=== PATIENT | male | born 1940 | race Caucasian/White ===

== ENCOUNTER 2017-04-26 06:20 | Day surgery (SDC) | payer MEDICARE ==
[~2017-04-26 06:20] MED LIST: BYDUREON PEN2 MG SQ; CARDURA4 MG PO; CIPRO 500MG TA500 MG PO; DAZIDOX10 MG PO; FENOFIBRATE160 MG PO; FLEXERIL10 MG PO; FLOMAX 0.40.4 MG/CAP PO; GLUCOPHAGE1000 MG PO; GLUCOPHAGE500 MG/TAB PO; GLUCOTROL XL2.5 MG PO; GLUCOTROL10 MG PO; JANUVIA 100MG100 MG PO; LIPITOR 40MG TA40 MG PO; LIPITOR80 MG PO; LOFIBRA160 MG PO; LYRICA 50MG CAP50 MG PO; METFORMIN1000 MG PO; MOBIC15 MG PO; NABUMETONE750 MG PO; NORCO 325 MG-101 TAB PO; OMEPRAZOLE40 MG PO; PERCOCET 325 MG1 TA2 PO; PRIL40 PO; PROSCAR 5MG5 MG PO; ROBAXIN 75750 MG/TAB PO; VOLTAREN 75 DR75 MG PO; VOLTAREN GEL 1%1 TU TP
[2017-04-26 07:34] LABS: CALCIUM 9.7 mg/dL (8.4-10.2); CREATININE, serum 0.78 mg/dL (0.66-1.25); POTASSIUM 4.3 mmol/L (3.4-5.0)
[2017-04-26] MEDS ORDERED: GLUCOPHAGE1000 MG PO (07:34)
[2017-04-26] MEDS ORDERED: PRIL40 PO (07:34)
[2017-04-26] MEDS ORDERED: TRIGLIDE160 M1 PO (07:35)
[2017-04-26] MEDS ORDERED: CARDURA4 MG PO (07:36)
[2017-04-26] MEDS ORDERED: LIPITOR 80MG80 MG PO (07:38)
[2017-04-26] MEDS ORDERED: VOLTAREN 75 DR75 MG PO (07:39)
[2017-04-26] MEDS ORDERED: CALCIUM CARBON650 M2 PO (07:40)
[2017-04-26] MEDS ORDERED: VITAMIN D3400 I1 PO (07:41)
== END 2017-04-26 08:15 | disposition home or self-care (01) ==
LOC: SDCO 06:20
PROVIDERS: Urology
DX: N32.0 Bladder-neck obstruction (principal); N40.1 Benign prostatic hyperplasia with lower urinary tract symptoms; R35.0 Frequency of micturition; R35.1 Nocturia; C61 Malignant neoplasm of prostate; I10 Essential (primary) hypertension; E11.9 Type 2 diabetes mellitus without complications; K21.9 Gastro-esophageal reflux disease without esophagitis; Z53.8 Procedure and treatment not carried out for other reasons; Z90.49 Acquired absence of other specified parts of digestive tract; Z79.84 Long term (current) use of oral hypoglycemic drugs; Z88.0 Allergy status to penicillin; Z83.3 Family history of diabetes mellitus; Z82.49 Family history of ischemic heart disease and other diseases of the circulatory system; Z84.1 Family history of disorders of kidney and ureter
CPT/HCPCS: J2250; J2405; J2704; J3010; J7120

== ENCOUNTER 2019-10-04 07:41 | Inpatient (IN) | payer MEDICARE ==
[~2019-10-04] VITALS: Ht 172.7 cm; Wt 57.3 kg
[~2019-10-04 07:41] MED LIST changes: +CALCIUM CARBON650 M2 PO; +LIPITOR 80MG80 MG PO; +TRIGLIDE160 M1 PO; +VITAMIN D3400 I1 PO
[2019-10-04 08:35] LABS: BASO % 0.5 % (0.0-2.0); EOS % 0.5 % (0-4.0); GRAN # 4.5 (1.4-6.5); GRAN % 68.4 % (42.2-75.2); HEMATOCRIT 41.5 % (42.0-52.0); HEMOGLOBIN 13.7 g/dl (13.5-18.0); LYMPH # 1.4 (1.2-3.4); LYMPH % 21.3 % (20.0-51.0); MEAN CELL VOLUME 89 fl (80.0-100.0); MEAN CORPUSCULAR HEMOGLOBIN 29 pg (27.0-31.0); MEAN CORPUSCULAR HGB CONC 33 g/dl (33.0-37.0); MEAN PLATELET VOLUME 9.6 fl (7.4-10.4); MONO # 0.6 (0.1-0.6); MONO % 8.7 % (1.7-9.3); PLATELET COUNT 363 K/mm3 (130-400); RED BLOOD COUNT 4.66 M/mm3 (4.20-5.60); REDCELL DISTRIBUTION WIDTH-CV 13.7 % (11.5-14.5)
[2019-10-04 08:54] LABS: ALANINE AMINOTRANSFERASE 11 U/L (4-49); ALBUMIN 4.2 gm/dL (3.5-5.0); ALKALINE PHOSPHATASE 251 U/L (50-136); ANION GAP 10 mmol/L (7-16); AST,SGOT 20 U/L (15-37); BILIRUBIN,TOTAL 0.8 mg/dL (0.0-1.0); BLOOD UREA NITROGEN 12 mg/dL (9-20); CALCIUM 9.5 mg/dL (8.4-10.2); CARBON DIOXIDE 31 mmol/L (22-30); CHLORIDE 91 mmol/L (98-107); CREATININE, serum 0.54 (0.66-1.25); LIPASE 60 U/L (23-300); POTASSIUM 4.4 mmol/L (3.4-5.0); SODIUM 132 mmol/L (137-145); TOTAL PROTEIN 8.5 gm/dL (6.4-8.2)
[2019-10-04 09:00] LABS: GLUCOSE 427 mg/dL (74-106)
[2019-10-04 09:12] LABS: COLLECTION METHOD CATHETER
[2019-10-04 09:13] LABS: PROTHROMBIN TIME 11.2 SECONDS (9.7-12.8)
[2019-10-04 09:18] LABS: PH 6 (5-8); SQUAMOUS EPITHELIAL None Seen /hpf; URINE APPEARANCE Clear; URINE BILIRUBIN Negative (NEGATIVE); URINE BLOOD Negative (NEGATIVE); URINE COLOR Yellow; URINE GLUCOSE 3+ (NEGATIVE); URINE KETONE 1+ (NEGATIVE); URINE LEUKOCYTE ESTERASE 1+ (NEGATIVE); URINE NITRATE Negative (NEGATIVE); URINE PROTEIN(semi-quant) 2+ (NEGATIVE); URINE UROBILINOGEN Negative (NEGATIVE); URINE WBC 20-50 /hpf
[2019-10-04 09:20] LABS: TROPONIN-I < 0.012 ng/mL (0.000-0.035)
[2019-10-04 09:31] LABS: URINE BACTERIA Rare /hpf
--- NOTE | 2019-10-04 13:31 | NUR ---
PT ARRIVED TO UNIT FROM ED @1320 ACCOMPANIED BY NURSE. REPORTS PAIN 6/10 TO ACROSS MID ABD AND LT HIP TO LOWER BACK THROBBING. MODERATE [place]. SHOES, WHITE SHIRT AND PLAN PANTS PLACED IN CLOSET. WILL COME BY AFTER WORK PER ED NURSE.
[2019-10-04 13:40] VITALS: BP 137/88; PULSE 90; TEMP 98.1
[2019-10-04 16:25] VITALS: BP 149/82; PULSE 91; TEMP 98.4
[2019-10-04 19:40] VITALS: BP 141/78; PULSE 96; TEMP 97.5
--- NOTE | 2019-10-04 20:45 | NUR ---
Patient assessed at this time. Alert and oriented. Denies pain and discomfort at this time. Stated that PRN [place] had helped. Encouraged to call if needing any further pain medication, and voiced understanding. Peripheral IV to left AC, NS running at 100 ml/hr per orders. Site is without redness, warmth, swelling, and pain. Denies having SOB and dyspnea. LS diminished throughout. HRR. Telemetry in place: sinus rhythm. Capillary refill less than 3 seconds. Non-tenting skin turgor. BSAx4. Abdomen soft and non-tender. No edema. Multiple scabs in various stages of healing to BUE and BLE. Voices no questions, needs, or concerns at this time. Resting in bed with call light within reach.
[2019-10-04 23:29] VITALS: BP 120/64; PULSE 87; TEMP 97.9
--- NOTE | 2019-10-05 01:20 | NUR ---
Patient given PRN [place] for pain at this time.
[2019-10-05 03:55] VITALS: BP 128/64; PULSE 95; TEMP 97.5
--- NOTE | 2019-10-05 05:18 | NUR ---
Patient has been resting in bed with call light within reach. Has not been calling for assistance. Bed alarm is on, and notifies staff when patient attempting to get up. Has been using bedside urinal while standing with staff assistance for urination. Received PRN [place] once so far this shift for pain to back, and medication was effective. Patient stated that IV to left AC was irritating hime due to beeping when bending arm. New IV started to right forearm as requsted. IV site to left AC taken out. NS continues to run at 100 ml/hr per orders. Patient voices no further questions, needs, or concerns at this time.
--- NOTE | 2019-10-05 07:00 | NUR ---
Bedside shift report received from RICARDO Alston. PT in bed resting, denies needs, will continue to monitor.
[2019-10-05 07:13] VITALS: BP 145/68; PULSE 86; TEMP 97.7
[2019-10-05 07:20] LABS: BASO % 0.4 % (0.0-2.0); EOS % 0.8 % (0-4.0); GRAN # 3.6 (1.4-6.5); GRAN % 71.8 % (42.2-75.2); LYMPH # 0.9 (1.2-3.4); LYMPH % 18.4 % (20.0-51.0); MEAN CELL VOLUME 90 fl (80.0-100.0); MEAN CORPUSCULAR HGB CONC 33 g/dl (33.0-37.0); MEAN PLATELET VOLUME 9.5 fl (7.4-10.4); MONO # 0.4 (0.1-0.6); PLATELET COUNT 282 K/mm3 (130-400); RED BLOOD COUNT 3.92 M/mm3 (4.20-5.60); REDCELL DISTRIBUTION WIDTH-CV 13.9 % (11.5-14.5)
[2019-10-05 07:29] LABS: HEMATOCRIT 35.2 % (42.0-52.0); MEAN CORPUSCULAR HEMOGLOBIN 30 pg (27.0-31.0)
[2019-10-05 07:31] LABS: HEMOGLOBIN 11.6 g/dl (13.5-18.0)
[2019-10-05 07:39] LABS: ALBUMIN 3.3 gm/dL (3.5-5.0); BILIRUBIN,TOTAL 0.5 mg/dL (0.0-1.0); CALCIUM 8.5 mg/dL (8.4-10.2); CHOLESTEROL RISK RATIO 6.6; CREATININE, serum 0.64 (0.66-1.25); MAGNESIUM 1.7 mg/dL (1.6-2.3); PHOSPHOROUS 3.8 mg/dL (2.5-4.5); POTASSIUM 3.9 mmol/L (3.4-5.0); TOTAL PROTEIN 6.7 gm/dL (6.4-8.2)
--- NOTE | 2019-10-05 07:57 | NUR ---
Pt resting in bed, doing well, denies pain, assessment charted. Gave washcloth to do own am care, states he feels better than when he came in. Fall risk in place, will continue to monitor. IVF to RFA.
[2019-10-05 11:09] VITALS: BP 127/69; PULSE 91; TEMP 98
[2019-10-05 16:11] VITALS: BP 135/78; PULSE 94; TEMP 98.7
--- NOTE | 2019-10-05 16:51 | NUR ---
Brim Rounder met with patient to discuss discharge planning. Patient lives in [place] with his, ([id number]#[phone]) and sees Dr. Queen for primary care. Patient obtains medications from [facility] with no difficulties. Patient uses a walker and is normally independent with ADLS, although reports he has to be very careful. Patient does not have Advance Directives in EMR. Patient denies every having Home Health Services and plans on returning home at this time. SW will continue to monitor for discharge needs.
--- NOTE | 2019-10-05 18:12 | NUR ---
Pt has had a lot of pain today, PRN pain meds given IV and PO often. Suppository given and patient has had two liquid stools that are mostly water and mucous, no formed stool to this point. Pt resting in bed, Otto visited this evening, orders received. Will give bedside shift report to nightshift nurse who will resume care.
[2019-10-05 19:39] VITALS: BP 111/74; PULSE 88; TEMP 97.8
--- NOTE | 2019-10-05 20:50 | NUR ---
Patient assessed at this time. Alert and oriented with intermittent confusion. Does not make needs known. High fall risk precautions in place. Does say he has pain to back. Given PRN Morphine per orders. Peripheral IV to right forearm. Fluids running per orders. Site is without redness, warmth, swelling, and pain. Denies having SOB and dyspnea. LS CTA in upper lobes, diminished in lower. Respirations even and unlabored. HRR. Telemetry in place. Capillary refill less than 3 seconds. Non-tenting skin turgor. BSAx4. Abdomen soft and non-tender. No edema. Voices no questions, needs, or concerns at this time. Resting in bed with call light within reach.
[2019-10-05 23:52] VITALS: BP 136/80; PULSE 80; TEMP 98.1
[2019-10-06 04:22] VITALS: BP 164/82; PULSE 90; TEMP 97.7
--- NOTE | 2019-10-06 05:43 | NUR ---
Patient has been resting in bed most of this shift. Has gotten up a few times to use urinal, assisted by staff. Received PRN Morphine once during the night, and PRN [place] once during the night. Resting in bed with call light within reach. High fall risk precautions remain in place.
[2019-10-06 07:33] VITALS: BP 142/74; PULSE 88; TEMP 97.6
--- NOTE | 2019-10-06 08:10 | NUR ---
PATIENT IS LAYING IN BED THIS MORNING. PATIENT IS ABLE TO TELL ME LOCATION, YEAR, AND HIS BIRTHDAY, BUT COULD NOT TELL ME THE PRESIDENT. PATIENT IS REPORTING NO PAIN AT THIS TIME. CALL LIGHT WITHIN REACH. CHECKED
--- NOTE | 2019-10-06 09:48 | NUR ---
Initial visit; Patient thanked Radio Equipment Installer for looking in on him, bringing him fresh water and offering God's blessings.
--- NOTE | 2019-10-06 11:20 | NUR ---
PATIENT DOWN AT PROCEDURE
--- NOTE | 2019-10-06 12:33 | NUR ---
RUSTY ECKERT RN IN ROOM TALKING TO THE PATIENT AND HIS . LIDOCAINE PATCH WAS APPLIED TO HIS BACK.
--- NOTE | 2019-10-06 13:38 | NUR ---
I met with and with patient at bedside after physician rounding. Pt is very difficult to engage in conversation but is able to verbalize that pt has been ready to for several weeks after this pain in his back started. She reports that she does not feel that he would want to go through a lot of testing and procedures to determine cause of cancer that is now showing up as metastatic lesions. She feels very sure that he would not do chemotherapy. We did talk about DPOA-HC which patient does not have. Doreen () wants to talk with their daughter elias before making any big decisions but was appreciative of knowing what options for care are. Currently pt stays at home while she works her 4 hour shifts at [employer]--she reports that he usually stays in bed. He has multiple falls recently. The only thing that is still good is his appetite. 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 I did provide pt's with contact information and will follow up with her tomorrow.
--- NOTE | 2019-10-06 14:35 | NUR ---
Poison Information Specialist was notified of Palliative Consult. GONZÁLEZ collaborated with RICARDO Jimenez who reports she met with patient and patient's . Barbara advised that patient's , Doreen would like to speak with her daughter before making decisions about goals of care. See Palliative note for further detail. GONZÁLEZ contacted Doreen to touch base and provide contact information. Doreen reports she will be speaking with her daughter, who lives out of state later this evening. GONZÁLEZ will continue to follow.
[2019-10-06 16:07] VITALS: BP 139/79; PULSE 112; TEMP 97.6
--- NOTE | 2019-10-06 17:30 | NUR ---
PATIENT HAD A EVENTFUL DAY. WENT FOR A BODY SCAN THAT OSSEOUS METASTATIC DISEASE. PATIENT DID HAVE A VERY SMALL BOWEL MOVEMENT. RUSTY ECKERT DID TALK TO THE PATIENT AND THE IS TALKING WITH THE DAUGHTER ABOUT WHETHER THEY ARE GOING COMFORT CARE. AND PATIENT BOTH WANT HIM TO BE COMFORTABLE. BLOOD SUGARS HAVE BEEN TREATED TODAY. FLUIDS ARE INFUSING AT 75 MLS/HR. PATIENT HAS EATEN GOOD TODAY. PATIENT DENIES ANY OTHER NEEDS. CALL LIGHT WITHIN REACH. WILL REPORT OFF TO E COMMERCE ARCHITECT.
[2019-10-06 19:21] VITALS: BP 140/72; PULSE 105; TEMP 98.5
--- NOTE | 2019-10-06 21:30 | NUR ---
Patient assessed at this time. Alert and oriented. Does not make needs known. High fall risk precautions in place. Bed alarm on. Patient with facial grimacing after assisted to the bathroom. Given PRN Morphine for pain. Peripheral INT to right forearm. Denies having SOB and dyspnea. LS CTA. Respirations even and unlabored. HRR. Capillary refill less than 3 seconds. Non-tenting skin turgor. BSAx4. Abdomen soft and non-tender. No edema. Scabs to BUE and BLE. Voices no questions, needs, or concerns at this time. Resting in bed with call light within reach.
[2019-10-06 23:41] VITALS: BP 117/66; PULSE 95; TEMP 97.8
[2019-10-07 03:48] VITALS: BP 150/71; PULSE 112; TEMP 98.1
--- NOTE | 2019-10-07 06:12 | NUR ---
Patient has been resting in bed with call light within reach. Has received PRN Morphine and [place] once this shift. Voices no questions, needs, or concerns at this time. High fall risk precautions in place.
[2019-10-07 08:14] VITALS: BP 126/57; PULSE 100; TEMP 98.4
--- NOTE | 2019-10-07 08:38 | NUR ---
PATIENT IS SITTING UP IN THE BED AFTER BEING BOOSTED EATING HIS BREAKFAST.
--- NOTE | 2019-10-07 09:59 | NUR ---
I spoke with , Doreen, this morning to see when she would want to do a conference call with her daughter. She advises me that she spoke with her daughter last night and her daughter supports her decision to proceed with hospice care. Doreen states that she cannot take care of him at home and would want him to go to the [facility]. This was repeated back to her and verified that they do not need a conference call and would like to proceed with referral to hospice house. Doreen will be here later on this morning. This was relayed to Dr Barriga and to Jagruti, manager social media.
--- NOTE | 2019-10-07 10:12 | NUR ---
PATIENT IS RESTING IN BED
--- NOTE | 2019-10-07 10:37 | NUR ---
PATIENT WAS UNHOOKED FROM IV FLUIDS. TELEYMETRY WAS TAKEN OFF OF THE PATIENT. PATIENT WAS HELPED TO USE THE URINAL AND INCONTINUENT CARE WAS ALSO PROVIDED. PATIENT REPOSITIONED IN BED. PATIENT COMFORTABLE AND CALL LIGHT IN REACH
--- NOTE | 2019-10-07 13:46 | NUR ---
patient sitting up in his bed, appears to be in a little less distress after a prn pain medication was given to the patient. upon asking patient he said that the pain pill did help with his pain.
--- NOTE | 2019-10-07 16:04 | NUR ---
PATIENT IS RESTING IN BED. APPEARS TO BE IN NO DISTRESS. CALL LIGHT WITHIN REACH. IV IS STILL IN PLACE IT WAS DIRECTED FROM GIS DATABASE ADMINISTRATOR AND RUSTY ECKERT TO LEAVE IT IN.
--- NOTE | 2019-10-07 16:47 | NUR ---
PATIENT WAS HELPED TO THE USE THE URINAL. INCONTINENT CARE WAS ALSO PROVIDED. PATIENT WAS BOOSTED IN BED. ROXINOL WAS GIVEN FOR SOME PAIN.
--- NOTE | 2019-10-07 17:04 | NUR ---
Technical Trainer collaborated with Barbara Palliative RN who advised patient and , Doreen would like referral sent to [facility]. GONZÁLEZ contacted Eugenia at [facility] and faxed referral. Eugenia advised they can admit tomorrow at 1400. GONZÁLEZ provided update to RN and patient's , Doreen. GONZÁLEZ will follow up tomorrow to set up EMS transport.
--- NOTE | 2019-10-07 18:34 | NUR ---
PATIENT HAD AN UNEVENTFUL DAY. PATIENT HAS BEEN SLEEPING DURING THE DAY. PRN PAIN [place] WAS GIVEN TO THE PATIENT. PATIENT WENT TO THE BATHROOM TWICE DURING THE DAY AND REPOSITIONED SEVERAL TIMES. PATIENT HAS BEEN GIVEN PRN PAIN MEDICATIONS NEEDED. DENIES ANY NEEDS AT THIS TIME. CALL LIGHT IN REACH. WILL REPORT OFF TO PUBLISHING DIRECTOR.
--- NOTE | 2019-10-07 22:00 | NUR ---
Pt assessment completed, charted, alert, oriented, roomair. Meds provided as per APR, tolerated well. Settled on bed, calll light on reach. No further needs at this time.
[2019-10-08 04:05] VITALS: BP 146/83; PULSE 83; TEMP 98.1
--- NOTE | 2019-10-08 05:13 | NUR ---
Pt had an uneventful nigh, slept through out the night. Helped him to use urinal couple of times. No further needs at this time.
--- NOTE | 2019-10-08 07:17 | NUR ---
PATIENT IS LAYING IN BED THIS MORNING WATCHING TV. ALERT AND ORIENTATED. IV INT. PATIENT IS NOT REPORTING ANY PAIN AT THIS TIME. DENIES ANY OTHER NEEDS.
[2019-10-08] MEDS ORDERED: TYLENOL 325MG325 MG PO (09:40)
[2019-10-08] MEDS ORDERED: NORCO 325 MG-51 TAB PO (09:40)
[2019-10-08] MEDS ORDERED: ROXANOL 20MG20 MG/ML SL (09:40)
[2019-10-08] MEDS ORDERED: ATIVAN 1MG T1 MG/TAB PO (09:41)
[2019-10-08] MEDS ORDERED: MIRALAX PA17 GM/Dose PO (09:42)
[2019-10-08] MEDS ORDERED: DULCOLAX S10 MG/SUPP RC (09:43)
[2019-10-08] MEDS ORDERED: BLUE-EMU LIDOC1 EACH TP (09:44)
[2019-10-08] MEDS ORDERED: LIQUIFILM TEARS15 ML OU (09:44)
[2019-10-08] MEDS ORDERED: TRANSDERM-0.5 MG/21 TD (09:45)
--- NOTE | 2019-10-08 10:59 | NUR ---
Comfort quilt given to pt with explanation. He reports that he is going to Hospice house today and I reinforced that his departure is planned for 3pm if his testing comes back. Pt seems very comfortable with this plan of care.
--- NOTE | 2019-10-08 15:34 | NUR ---
Patient to discharge today to the [facility]. Secretary Receptionist contacted patient's , Doreen who is in agreement with discharge plan. GONZÁLEZ collaborated with Omi at [facility] to delay admit time by one hour as patient's COVID is still pending. Rapid swab ordered and came back negative. GONZÁLEZ contacted [facility] to set transport. GONZÁLEZ obtained signatures on EMS forms and placed them on chart. GONZÁLEZ met with patient who is in agreement with discharge plan. GONZÁLEZ faxed discharge orders, medications, and negative COVID test to [facility]. No additional needs at this time.
== END 2019-10-08 15:20 | disposition hospice, home (50) | DRG 543 ==
LOC: COL.ER 07:41 → MEDICAL 12:08
PROVIDERS: Emergency Medicine; ADMIT Family Medicine
DX: C79.51 Secondary malignant neoplasm of bone (principal); N39.0 Urinary tract infection, site not specified; K56.7 Ileus, unspecified; K21.9 Gastro-esophageal reflux disease without esophagitis; E11.65 Type 2 diabetes mellitus with hyperglycemia; E78.5 Hyperlipidemia, unspecified; I10 Essential (primary) hypertension; M48.061 Spinal stenosis, lumbar region without neurogenic claudication; M43.8X4 Other specified deforming dorsopathies, thoracic region; Z66 Do not resuscitate; Z51.5 Encounter for palliative care; M54.5 Low back pain; F03.90 Unspecified dementia, unspecified severity, without behavioral disturbance, psychotic disturbance, mood disturbance, and anxiety; Z85.46 Personal history of malignant neoplasm of prostate; Z90.89 Acquired absence of other organs; Z79.84 Long term (current) use of oral hypoglycemic drugs
CPT/HCPCS: 99232-AI; 99233-AI; 99239; A9503; A9585; G0378; J0696; J1650; J1815; J2270; J7030; Q9967